=== PATIENT | female | born 1995 | race Caucasian/White ===

== ENCOUNTER → 2017-08-10 | Outpatient (REF) | payer OTHER | LOC: M LAB REF 17:01 | DX: J02.9 Acute pharyngitis, unspecified (principal) ==

== ENCOUNTER → 2023-06-24 | Outpatient (CLI) | payer BC ==
[2023-06-24 17:45] LABS: HEMATOCRIT 34.6 % (36.0-47.0); HEMOGLOBIN 11.3 g/dl (12.0-15.5); MEAN CORPUSCULAR HEMOGLOBIN 29.2 pg (27.0-33.0); MEAN CORPUSCULAR HGB CONC 32.7 g/dl (32.0-36.5); MEAN CORPUSCULAR VOLUME 89.4 fl (80.0-96.0); PLATELET COUNT, AUTOMATED 221 10^3/uL (150-450); RED BLOOD COUNT 3.87 10^6/uL (4.00-5.40); WHITE BLOOD COUNT 9.9 10^3/uL (4.0-10.0)
[2023-06-24 18:11] LABS: ALBUMIN 2.3 G/DL (3.2-5.2); ALKALINE PHOSPHATASE 96 U/L (46-116); ALT/SGPT < 9 U/L (7.0-40); AST/SGOT 11 U/L (<34); BILIRUBIN,TOTAL 0.3 MG/DL (0.3-1.2); BLOOD UREA NITROGEN 7 MG/DL (9-23); CALCIUM LEVEL 8.3 MG/DL (8.5-10.1); CARBON DIOXIDE LEVEL 22 MMOL/L (20-31); CHLORIDE LEVEL 108 MMOL/L (98-107); CREATININE FOR GFR 0.61 MG/DL (0.55-1.30); GLOMERULAR FILTRATION RATE > 60.0 (>60); GLUCOSE, FASTING 82 MG/DL (60-100); SODIUM LEVEL 139 MMOL/L (136-145); TOTAL PROTEIN 5.7 G/DL (5.7-8.2)
== END ==
LOC: M PLALAB 15:40
PROVIDERS: ATTEND Obstetrics & Gynecology
DX: O16.3 Unspecified maternal hypertension, third trimester (principal); Z3A.00 Weeks of gestation of pregnancy not specified

== ENCOUNTER → 2023-07-09 | Outpatient (REF) | payer BC ==
[~2023-07-09] MED LIST: ACET-683 PO; ALLE4TAB11 PO; COLA100C5 PO; IBUP-1022 PO; IRON65TA2 PO; LOES1TAB12 PO; MM S100C PO; MULTTAB20 PO; OXYC-517 PO; PANT40TA29 PO; UNIS25TA3 PO; VITA250T30 PO
[2023-07-10 11:34] LABS: TOTAL PROTEIN,RANDOM URINE 48.2 MG/DL (0.0-14.0)
[2023-07-10 11:39] LABS: CREATININE,RANDOM URINE 189.6 MG/DL
== END ==
LOC: M PLALAB 14:00
PROVIDERS: ATTEND Obstetrics & Gynecology
DX: O13.3 Gestational [pregnancy-induced] hypertension without significant proteinuria, third trimester (principal); Z3A.36 36 weeks gestation of pregnancy

== ENCOUNTER 2023-07-15 05:26 | Inpatient (IN) | payer BC ==
[~2023-07-15] VITALS: Ht 160 cm; Wt 85.0 kg
[2023-07-15] VITALS (28 sets, daily range): BP systolic 119–188; BP diastolic 74–113; TEMP 97.2–98.2; O2SAT 95–97
[~2023-07-15 05:26] MED LIST changes: -ACET-683 PO; -COLA100C5 PO; -IBUP-1022 PO; -OXYC-517 PO
[2023-07-15] MEDS ORDERED: HOME MED LIST COMPLETE! XX SCH (05:50)
[2023-07-15] MEDS: LACTATED RINGER'S 1000 ML IV STA (05:59)
[2023-07-15 06:15] LABS: HEMATOCRIT 33.2 % (36.0-47.0); MEAN CORPUSCULAR HEMOGLOBIN 29.6 pg (27.0-33.0); MEAN CORPUSCULAR HGB CONC 33.1 g/dl (32.0-36.5); MEAN CORPUSCULAR VOLUME 89.2 fl (80.0-96.0); PLATELET COUNT, AUTOMATED 183 10^3/uL (150-450); RED BLOOD COUNT 3.72 10^6/uL (4.00-5.40); WHITE BLOOD COUNT 10.2 10^3/uL (4.0-10.0)
[2023-07-15] MEDS: LABETALOL 100MG/20ML VIAL IV STA ×2 (06:23→07:00)
[2023-07-15 06:33] LABS: URIC ACID 5.5 MG/DL (3.1-7.8)
[2023-07-15 06:35] LABS: LDH LACTATE DEHYDROGENASE 176 U/L (120-246)
[2023-07-15 06:36] LABS: ALT/SGPT 11 U/L (7.0-40); AST/SGOT 12 U/L (<34); BILIRUBIN,TOTAL 0.4 MG/DL (0.3-1.2); CREATININE FOR GFR 0.64 MG/DL (0.55-1.30); GLOMERULAR FILTRATION RATE > 60.0 (>60)
[2023-07-15] MEDS: LR 1,000 ML IV SCH ×2 (07:00→14:42)
[2023-07-15 07:16] LABS: HEPATITIS C VIRUS ABY INDEX < 0.02 INDEX (<0.8)
[2023-07-15 07:18] LABS: CREATININE,RANDOM URINE 293.5 MG/DL; TOTAL PROTEIN,RANDOM URINE 735.5 MG/DL (0.0-14.0)
[2023-07-15] MEDS: ceFAZolin SOD 2 GM in IV 1 EA IV ONE (07:31)
[2023-07-15] MEDS: BICITRA 30ML SOLN UDC PO ONE (07:31)
[2023-07-15] MEDS ORDERED: PHENYLephrine 500MCG 5ML (100MCG/ML) SYRINGE As Ordered ONE (08:29)
[2023-07-15] MEDS ORDERED: METOCLOPRAMIDE INJ 10MG/2ML VIAL As Ordered ONE (08:29)
[2023-07-15] MEDS ORDERED: KETOROLAC 60MG 2ML VIAL As Ordered ONE (08:29)
[2023-07-15] MEDS ORDERED: OXYTOCIN 30UNITS IN 0.9% NaCl 500ML IV BAG As Ordered ONE (08:29)
[2023-07-15] MEDS ORDERED: ePHEDrine SULFATE 25 MG/5 ML(5MG/ML) SYRINGE As Ordered ONE (08:29)
[2023-07-15] MEDS ORDERED: ONDANSETRON 4MG 2ML VIAL As Ordered ONE (08:29)
[2023-07-15] MEDS ORDERED: MIDAZOLAM INJ 2MG/2ML VIAL As Ordered ONE (08:29)
[2023-07-15] MEDS ORDERED: ACETAMINOPHEN 1000MG 100ML IV BAG As Ordered ONE (08:29)
[2023-07-15] MEDS ORDERED: MORPHINE PRES-FREE INJ 10 MG/10 ML VIAL As Ordered ONE (08:29)
[2023-07-15] MEDS ORDERED: MAGNESIUM *L&D* 4GM/100ML BAG (40MG/ML) As Ordered ONE (08:55)
[2023-07-15] MEDS ORDERED: MAGNESIUM SULFATE 4% INJ 20GM/500ML (40MG/ML) As Ordered ONE (08:55)
[2023-07-15] MEDS ORDERED: ONDANSETRON 4MG 2ML VIAL IV PRN (09:05)
[2023-07-15] MEDS ORDERED: oxyCODONE 5MG TAB PO PRN (09:05)
[2023-07-15] MEDS ORDERED: RHO(D) IMMUNE GLOBULIN/MALTOSE 500MCG(2500IU)/2.2ML VIAL (WINRHO) IM SCH (09:05)
[2023-07-15] MEDS ORDERED: DOCUSATE SODIUM 100MG CAPSULE PO PRN (09:05)
[2023-07-15] MEDS ORDERED: COLA100C5 PO (09:16)
[2023-07-15] MEDS ORDERED: IBUP-1022 PO (09:16)
[2023-07-15] MEDS ORDERED: OXYC-517 PO (09:16)
[2023-07-15] MEDS ORDERED: ACET-683 PO (09:16)
[2023-07-15] MEDS: MAG Sulf (L&D) 4 GM/100 ML 4 GM in IV 1 EA IV ONE (09:57)
[2023-07-15] MEDS: OXYTOCIN DRIP 30 UNITS in IV 1 EA IV SCH (09:57)
[2023-07-15] MEDS: MAG Sulf (OBGYN) 20GM/500ML 20,000 MG in IV 1 EA IV SCH (09:57)
[2023-07-15] MEDS: PRENATAL VITAMINS CHEWABLE TABLET PO SCH (11:19)
[2023-07-15] MEDS: METOCLOPRAMIDE INJ 10MG/2ML VIAL IV PRN (13:28)
[2023-07-15] MEDS: KETOROLAC 30 MG/ML 1ML VIAL IV SCH (15:14)
[2023-07-15] MEDS: ACETAMINOPHEN 500 MG TAB PO SCH (15:14)
[2023-07-15] MEDS ORDERED: diphenhydrAMINE 50MG/ML VIAL IV PRN (15:55)
[2023-07-15 19:09] LABS: HEMATOCRIT 28.5 % (36.0-47.0); HEMOGLOBIN 9.5 g/dl (12.0-15.5); MEAN CORPUSCULAR HEMOGLOBIN 29.3 pg (27.0-33.0); MEAN CORPUSCULAR HGB CONC 33.3 g/dl (32.0-36.5); PLATELET COUNT, AUTOMATED 186 10^3/uL (150-450); RED BLOOD COUNT 3.24 10^6/uL (4.00-5.40); WHITE BLOOD COUNT 17.1 10^3/uL (4.0-10.0)
[2023-07-15 19:36] LABS: ALKALINE PHOSPHATASE 110 U/L (46-116); ALT/SGPT 13 U/L (7.0-40); AST/SGOT 19 U/L (<34); BILIRUBIN,TOTAL 0.3 MG/DL (0.3-1.2); BLOOD UREA NITROGEN 7 MG/DL (9-23); CALCIUM LEVEL 7.3 MG/DL (8.5-10.1); CARBON DIOXIDE LEVEL 19 MMOL/L (20-31); CHLORIDE LEVEL 104 MMOL/L (98-107); CREATININE FOR GFR 0.58 MG/DL (0.55-1.30); GLOMERULAR FILTRATION RATE > 60.0 (>60); GLUCOSE, FASTING 153 MG/DL (60-100); POTASSIUM SERUM 4.2 MMOL/L (3.5-5.1); SODIUM LEVEL 133 MMOL/L (136-145); TOTAL PROTEIN 4.5 G/DL (5.7-8.2)
[2023-07-16] VITALS (17 sets, daily range): BP systolic 129–184; BP diastolic 78–107; TEMP 97.9–99.1; O2SAT 94–99
[2023-07-16 06:38] LABS: HEMATOCRIT 24.7 % (36.0-47.0); HEMOGLOBIN 8.3 g/dl (12.0-15.5); MEAN CORPUSCULAR HEMOGLOBIN 29.7 pg (27.0-33.0); MEAN CORPUSCULAR HGB CONC 33.6 g/dl (32.0-36.5); MEAN CORPUSCULAR VOLUME 88.5 fl (80.0-96.0); PLATELET COUNT, AUTOMATED 112 10^3/uL (150-450); RED BLOOD COUNT 2.79 10^6/uL (4.00-5.40); WHITE BLOOD COUNT 14.3 10^3/uL (4.0-10.0)
[2023-07-16] MEDS: SIMETHICONE 80MG CHEW TAB PO PRN (07:53)
[2023-07-16] MEDS: IBUPROFEN 600MG TAB PO SCH (12:51)
[2023-07-16] MEDS: LABETALOL 200 MG TAB PO STA (15:28)
[2023-07-16] MEDS: CALCIUM CARBONATE 500 MG CHEW U/D PO PRN (15:28)
[2023-07-16] MEDS: ENOXAPARIN 40MG/0.4ML SYRINGE (J1650 PER 10MG) SC SCH (21:39)
[2023-07-16] MEDS: oxyCODONE 5MG TAB PO PRN (21:40)
[2023-07-16] MEDS: LABETALOL 200 MG TAB PO SCH (21:40)
[2023-07-17] VITALS (8 sets, daily range): BP systolic 138–181; BP diastolic 83–105; O2SAT 96–100
[2023-07-17] MEDS: MEASLES,MUMPS,RUBELLA VACCINE INJ (MMR-II) SC.IMMUN ONE (09:00)
[2023-07-17] MEDS: NIFEdipine 30MG XL TAB PO SCH (18:28)
[2023-07-18] VITALS (8 sets, daily range): BP systolic 125–157; BP diastolic 80–101; O2SAT 95–98
[2023-07-18 08:13] LABS: HEMOGLOBIN 9.2 g/dl (12.0-15.5); MEAN CORPUSCULAR HEMOGLOBIN 29.2 pg (27.0-33.0); MEAN CORPUSCULAR HGB CONC 32.9 g/dl (32.0-36.5); MEAN CORPUSCULAR VOLUME 88.9 fl (80.0-96.0); PLATELET COUNT, AUTOMATED 216 10^3/uL (150-450); RED BLOOD COUNT 3.15 10^6/uL (4.00-5.40)
[2023-07-18] MEDS: SUMAtriptan SUCCINATE 25 MG TAB PO PRN (10:20)
[2023-07-18] MEDS: LABETALOL 200 MG TAB PO ONE (13:16)
[2023-07-18] MEDS: LABETALOL 200 MG TAB PO SCH (21:13)
[2023-07-19 02:45] VITALS: BP 123/78; O2SAT 98
[2023-07-19 06:00] VITALS: BP 126/76; O2SAT 97
[2023-07-19 08:29] VITALS: BP 138/74
[2023-07-19] MEDS ORDERED: LABE20TAB PO (09:09)
[2023-07-19 09:42] VITALS: BP 124/80; O2SAT 97
== END 2023-07-19 11:34 | disposition home or self-care (01) | DRG 540 ==
LOC: M LDI 05:26 → M OBS 10:34 → MERGE 07-27 07:30
PROVIDERS: ADMIT Obstetrics & Gynecology; ATTEND Obstetrics & Gynecology
PROC: 10D00Z1 Extraction of Products of Conception, Low, Open Approach (ICD-10-PCS; principal; 2023-07-15 07:30)
DX: O14.14 Severe pre-eclampsia complicating childbirth (principal); O69.1XX0 Labor and delivery complicated by cord around neck, with compression, not applicable or unspecified; Z3A.37 37 weeks gestation of pregnancy; Z37.0 Single live birth

== ENCOUNTER → 2024-02-29 | Outpatient (CLI) | payer BC ==
[~2024-02-29] MED LIST changes: +ACET-683 PO; +COLA100C5 PO; +IBUP-1022 PO; +LABE20TAB PO; +OXYC-517 PO
== END ==
LOC: M WUC 11:04
PROVIDERS: ATTEND Registered Nurse
DX: J06.9 Acute upper respiratory infection, unspecified (principal)